=== PATIENT | male | born 1950 | race Caucasian/White ===

== ENCOUNTER 2019-03-14 19:15 | Emergency (ER) | payer MEDICARE ==
[~2019-03-14] VITALS: Ht 180.4 cm; Wt 178.3 kg
[2019-03-14] MEDS ORDERED: IV NORMAL SALINE 1,000ML 1,000 ML IV SCH (19:39)
[2019-03-14] MEDS ORDERED: IV RINGERS SOLUTION,LACTATED 1,000 ML IV SCH (19:39)
--- NOTE | 2019-03-14 19:39 | PHYS DOC ---
Past History Past Medical History: Anemia, Angina, Anxiety, Arthritis, Bronchitis, CAD, CHF, COPD, Diabetes, Hypertension, Other Past Medical History Blind Past Surgical History: Cholecystectomy, Other Adult General Chief Complaint Chief Complaint: BLOODY STOOL.. " I ve been really weak.. I was at [facility] .. they discharge me today... .. But I am no better.. My room mate said my poop... had red blood in it...".. " I can't tell because I am blind.. I tried to go to [place].. but they diverted me here... ".. I live in [facility] [place].. " HPI HPI Patient is a 68 year old male [facility] pt[facility] who presents with complaints of severe weakness and adi bloody stools. Patient just discharged from [facility] , after arrival home continue be very weak and had a bloody stools today. Pt. has obvious bright red blood with last stool. Patient was in route to [place] but was deferred to [place] because of lack of capacity to care for patient. Patient has somewhat extensive and chronic medical history with anemia of chronic disease, chronic hypoxic respiratory failure, cor pulmonale chronic, chronic renal disease stage III, diastolic CHF, hypertension, morbid obesity, obstructive sleep apnea requiring CPAP at night. Patient has history of retinal detachment bilaterally-blindness, chronic thrombocytopenia, hepatitis C, diabetes, hearing deficits, gait disorder, deconditioning, anxiety disorder, coronary artery disease, GERD, and gastritis. Patient reportedly did receive 2 units of packed RBCs at [facility] during his stay there. Patient's designer writer is at bedside and states he is extremely weak as compared to his normal baseline. Review of Systems Review of Systems Constitutional: Denies fever or chills [] Eyes: Denies change in visual acuity, redness, or eye pain [] HENT: Denies nasal congestion or sore throat [] Respiratory: Denies cough or shortness of breath [] Cardiovascular: No additional information not addressed in HPI [] GI: Generalized abdominal pain, nausea, complaints of diarrhea which is bloody). No active vomiting. : Denies dysuria or hematuria [] Musculoskeletal: Complains of generalized weakness Integument: Denies rash or skin lesions [] Neurologic: Denies headache, focal weakness or sensory changes [] Endocrine: Denies polyuria or polydipsia [] All other systems were reviewed and found to be within normal limits, except as documented in this note. Family History Family History Noncontributory Current Medications Current Medications See nursing for home meds Allergies Allergies Allergic to penicillin, morphine and oxycodone Physical Exam Physical Exam Constitutional: Moderately acute distress, non-toxic appearance. [] HENT: Normocephalic, atraumatic, bilateral external ears normal, oropharynx moist, no oral exudates, nose normal. [] Eyes: Blind, conjunctiva pale, no discharge. [] Neck: Normal range of motion, no tenderness, supple, no stridor. [] Neck more than 17 inches circumference. JVD in the sitting position. Cardiovascular:Heart rate regular rhythm, no murmur []PMI to the left Lungs & Thorax: Bilateral breath sounds equal at apex with scattered wheezes on auscultation [. Pt. ]has bilateral basal crackles and some rhonchi more present on right lung ozuna. Abdomen: Bowel sounds normal, soft, generalized abdomen tenderness, no masses, no pulsatile masses. Old surgery scar-gallbladder. Morbidly obese. Rectal gross red blood with stool. Skin: Warm, dry, no erythema, no rash. [] Back: No tenderness, no CVA tenderness. Arthritic changes. Extremities: No tenderness, no cyanosis, no clubbing, ROM intact, bilateral leg edema and venous stasis changes. Arthritic changes. Neurologic: Alert and oriented X 3, those extremities on request, decreased distal sensory function, no focal deficits noted. []Is able to stand but very unsteady. Psychologic: Affect anxious, judgement normal, mood normal. [] EKG EKG My interpretation of EKG shows a sinus rhythm at 70 bpm. No findings of acute STEMI with contralateral changes.[] Radiology/Procedures Radiology/Procedures [][address] [address] IMAGING REPORT Signed PATIENT: ARNEL LEBLANC: [id number] : 05/30/1993 LOCATION: ER AGE: 25 SEX: M EXAM STATUS: REG ER ORD. PHYSICIAN: BREANN MURPHY MD REASON: Abdomen pain, diarrhea, nausea, fatigue PROCEDURE: ACUTE ABDOMEN SERIES ACUTE ABDOMEN SERIES History: Abdomen pain, diarrhea, nausea, fatigue. COMPARISON: Abdominal series of 01/24/2019. FINDINGS: Single view the chest is obtained. Cardiomediastinal silhouette is not enlarged. No evidence of pneumothorax, pleural effusion or consolidating infiltrate. Bones appear to be grossly intact. Splenic shadow may be slightly enlarged. No evidence of pathologic calcification. Bowel gas pattern is nonobstructive. Bones appear grossly intact. No evidence of free intraperitoneal gas on upright view. IMPRESSION: 1. No consolidating infiltrate in the chest. 2. Nonobstructive bowel gas pattern. 3. Possible mild splenomegaly. Electronically signed by: Bhavin Cazares MD (03/14/2019 9:07 PM) [facility] DICTATED AND SIGNED BY: BHAVIN CAZARES MD DATE: 03/14/192106 CC: BREANN MURPHY MD; PCP,NO ~ Course & Med Decision Making Course & Med Decision Making Pertinent Labs and Imaging studies reviewed. (See chart for details) Discussed presentation, testing and treatment plan with Dr. Marmolejo, advised to transfer to [facility] under his care. May need transfusion or bleeding scan. May also need GI consult or possible surgical intervention if source of bleed a active diverticular or AV malformation.. Will need Lasix if start transfusion of PRBC's. Low threshold to transfuse this patient. Critical care 90 minutes. Impression: 1. GI bleed (suspect lower GI) 2. Anemia - Hgb.8.9 3. Thrombocytopenia 107 4. Mild elevation alkaline phosphatase 162 5. Elevated BUN 50/creatinine 1.8 6. Diastolic CHF-BNP 3090 7. Malnutrition albumin 3.2 8. Elevated lipase 590 9. Elevated D-dimer3.20 10.Morbid Obesity [] Dragon Disclaimer Dragon Disclaimer This electronic medical record was generated, in whole or in part, using a voice recognition dictation system. Departure Departure: Disposition: HOME/RESIDENCE PRIOR TO ADM Condition: STABLE Referrals: PCP,WILLIAM (PCP) [place] Disclaimer This chart was dictated in whole or in part using Voice Recognition software in a busy, high-work load, and often noisy Emergency Department environment. It may contain unintended and wholly unrecognized errors or omissions. Dragon Disclaimer This chart was dictated in whole or in part using Voice Recognition software in a busy, high-work load, and often noisy Emergency Department environment. It ma y contain unintended and wholly unrecognized errors or omissions. BREANN MURPHY MD Mar 14, 2019 19:39
[2019-03-14] MEDS ORDERED: ACETAMINOPHEN 160 MG/5 ML ORAL.SUSP. PO ONE (19:45)
[2019-03-14] MEDS ORDERED: FAMOTIDINE 20 MG/2 ML VIAL IVP ONE (19:45)
[2019-03-14] MEDS ORDERED: diphenhydrAMINE 50 MG/ML VIAL IV ONE (19:45)
[2019-03-14 20:17] LABS: BASO % 1 % (0-3); EOS # 0.1 x10^3/uL (0.0-0.7); EOS % 2 % (0-3); HEMATOCRIT 28.1 % (39.0-53.0); HEMOGLOBIN 8.9 g/dL (13.0-17.5); LYMPH # 0.4 x10^3/uL (1.0-4.8); LYMPH % 8 % (24-48); MEAN CORPUSCULAR HEMOGLOBIN 28 pg (25-35); MEAN CORPUSCULAR HGB CONC 32 g/dL (31-37); MEAN CORPUSCULAR VOLUME 88 fL (79-100); MONO # 0.4 x10^3/uL (0.0-1.1); MONO % 7 % (0-9); NEUT # 4.6 x10^3uL (1.8-7.7); NEUT % 82 % (31-73); PLATELET COUNT 107 x10^3/uL (140-400); RED BLOOD COUNT 3.19 x10^6/uL (4.30-5.70); RED CELL DISTRIBUTION WIDTH 17.1 % (11.5-14.5); WHITE BLOOD COUNT 5.6 x10^3/uL (4.0-11.0)
[2019-03-14 20:34] LABS: CREATININE 1.6 mg/dL (0.7-1.3); GFR 42.9; POTASSIUM 4.8 mmol/L (3.5-5.1)
[2019-03-14 20:43] LABS: ALBUMIN 3.2 g/dL (3.4-5.0); DIRECT BILIRUBIN 0.2 mg/dL (0.0-0.2); MAGNESIUM 2.2 mg/dL (1.8-2.4); TOTAL BILIRUBIN 0.4 mg/dL (0.2-1.0); TOTAL PROTEIN 8.5 g/dL (6.4-8.2)
--- NOTE | 2019-03-14 20:53 | RAD ---
Abdomen series including AP chest 03/14/2019. Reason for exam: Shortness of air and bloody stools. There are no available comparison studies. No free air is seen. Gas is present in the stomach and colon. There is no evidence of obstruction. No abnormal masses or gas collections are seen. A single view of the chest shows apparent elevation of the right hemidiaphragm. There is probably some atelectasis and pleural fluid at the right base. Mild haziness in the left probably relates to overlying soft tissues. The heart is not obviously enlarged. IMPRESSION: Nonobstructive gas pattern. Right basilar opacity in the chest. Electronically signed by: Tushar Langley Jr., MD (03/14/2019 8:50 PM) [facility]
[2019-03-14 21:13] LABS: BACTERIA,URINE FEW /HPF (0-FEW); BILIRUBIN,URINE NEG (NEG); CLARITY,URINE CLEAR; COLOR,URINE YELLOW; GLUCOSE,URINE NEG (NEG); HYALINE CASTS, URINE OCC /HPF; NITRITE,URINE NEG (NEG); SQUAMOUS EPITHELIAL CELL,UR OCC /LPF; UROBILINOGEN,URINE 0.2 mg/dL (0.2 mg/dL)
[2019-03-14 21:26] LABS: INFLUENZA A PATIENT NEGATIVE (NEGATIVE); INFLUENZA B PATIENT NEGATIVE (NEGATIVE)
[2019-03-14] MEDS ORDERED: FUROSEMIDE 40 MG/4 ML VIAL IVP ONE (21:30)
[2019-03-14 22:21] VITALS: BP 162/94
--- NOTE | 2019-03-14 22:48 | EKG ---
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
[2019-03-17 09:07] LABS: HCV ULTRA QUANT PCR HCV Not Detected IU/mL (.)
== END 2019-03-14 22:37 | disposition short-term general hospital (02) ==
LOC: ER 19:15
DX: K92.2 Gastrointestinal hemorrhage, unspecified (principal); D64.9 Anemia, unspecified; D69.6 Thrombocytopenia, unspecified; R79.89 Other specified abnormal findings of blood chemistry; I11.0 Hypertensive heart disease with heart failure; I50.30 Unspecified diastolic (congestive) heart failure; E46 Unspecified protein-calorie malnutrition; R74.8 Abnormal levels of other serum enzymes; R79.1 Abnormal coagulation profile; K92.1 Melena; R19.7 Diarrhea, unspecified; E66.01 Morbid (severe) obesity due to excess calories; F41.9 Anxiety disorder, unspecified; M19.90 Unspecified osteoarthritis, unspecified site; I25.10 Atherosclerotic heart disease of native coronary artery without angina pectoris; J44.9 Chronic obstructive pulmonary disease, unspecified; E11.9 Type 2 diabetes mellitus without complications; Z68.43 Body mass index [BMI] 50.0-59.9, adult; Z90.49 Acquired absence of other specified parts of digestive tract
CPT/HCPCS: 36415; 74022; 80048; 80076; 81001; 82550; 83605; 83690; 83735; 83880; 84443; 84484; 85025; 85379; 85610; 85730; 86705; 86709; 86803; 86850; 86900; 86901; 87040; 87340; 87521; 87804; 93005; 94640; 96360; 96361; 96374; 96375; 99291; 99292; J1200; J1940; J3490; J7120